=== PATIENT | female | born 1985 | race Caucasian/White ===

== ENCOUNTER 2016-01-25 17:27 | Inpatient (IN) | payer OTHER ==
[~2016-01-25] VITALS: Ht 157.5 cm; Wt 77.8 kg
[2016-01-25 18:21] LABS: MEAN CORPUSCULAR HEMOGLOBIN 31.1 pg (27.0-33.0); MEAN CORPUSCULAR HGB CONC 34.4 g/dl (32.0-36.5); MEAN CORPUSCULAR VOLUME 90.3 fl (80.0-96.0); RED CELL DISTRIBUTION WIDTH 11.7 % (11.5-14.5); WHITE BLOOD COUNT 11.8 K/mm3 (4.0-10.0)
[2016-01-25 18:32] LABS: AMPHETAMINES LEVEL URINE NEGATIVE (NEGATIVE); BENZODIAZEPINES URINE NEGATIVE (NEGATIVE); COCAINE METABOLITE URINE NEGATIVE (NEGATIVE); CONTROL LINE INT CTR LINE PRESENT; METHADONE URINE NEGATIVE (NEGATIVE); OPIATES URINE NEGATIVE (NEGATIVE); TRICYCLIC ANTIDEPRESS URINE NEGATIVE (NEGATIVE)
[2016-01-25 18:38] LABS: CONTROL LINE HCG INT CTR LINE PRESENT
[2016-01-25 18:54] LABS: ALBUMIN 4.3 GM/DL (3.2-5.2); ALBUMIN/GLOBULIN RATIO 1.39 (1.00-1.93); ALKALINE PHOSPHATASE 45 U/L (45-117); ALT/SGPT 17 U/L (12-78); ANION GAP 10 MEQ/L (8-16); AST/SGOT 15 U/L (15-37); BILIRUBIN,DIRECT 0.1 MG/DL (0.0-0.2); BILIRUBIN,TOTAL 0.2 MG/DL (0.2-1.0); BLOOD UREA NITROGEN 11 MG/DL (7-18); CALCIUM LEVEL 8.7 MG/DL (8.5-10.1); CARBON DIOXIDE LEVEL 26 MEQ/L (21-32); CHLORIDE LEVEL 106 MEQ/L (98-107); GLOMERULAR FILTRATION RATE > 60.0 (>60); GLUCOSE, FASTING 97 MG/DL (70-105); POTASSIUM SERUM 3.7 MEQ/L (3.5-5.1); SODIUM LEVEL 142 MEQ/L (136-145); TOTAL PROTEIN 7.4 GM/DL (6.4-8.2)
[2016-01-25] MEDS ORDERED: MAALOX 30 ML SUSP *UDC PO PRN (19:30)
[2016-01-25] MEDS ORDERED: MOM 30ML SUSPENSION UDC PO PRN (19:30)
[2016-01-25] MEDS ORDERED: BENA25CA2 PO (19:45)
--- NOTE | 2016-01-25 20:16 | EDDOCDS ---
Physician Documentation [facility] Name: Мария Mann Age: 30 yrs Sex: Female : 1985 Arrival Date: 01/25/2016 Time: 17:27 Bed [facility] Private MD: Nikia Robledo A Disposition: 01/25/16 19:20 Hospitalization ordered by Joshua Herrera for Inpatient Admission. Preliminary diagnosis is Major depressive disorder, single episode. - Bed requested for Admit. - Status is Inpatient Admission. mf4 - Condition is Stable. - Problem is new. - Symptoms are unchanged. Historical: - Allergies: Mucinex; - Home Meds: 1. none - PMHx: Seasonal Allergies; Anxiety; - PSHx: none; - Social history: Smoking status: Patient states was never smoker of tobacco. No barriers to communication noted, The patient speaks fluent Occitan, Speaks appropriately for age. - Family history: Not pertinent. - : The pt / caregiver states he / she is not on anticoagulants. Home medication list is obtained from the patient. - Exposure Risk Screening:: None identified. 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 2 in. (157.48 cm) (R); 20:09 BP 136 / 74; Pulse 72; Resp 16; Pulse Ox 100% on R/A; Pain 0/10; mf4 17:29 Body Mass Index 29.26 (72.57 kg, 157.48 cm) dd6 MDM: 17:58 Consult PFS/PSA/Oracle Bpm Consultant ordered. br1 17:58 Consult PFS/PSA/Oracle Bpm Consultant: Patient's case requires discussion with on-call br1 Psychiatrist ordered. 17:58 PSA/PFS to call Nursing Machine Room Operator, to enter patient data on [place] Safe Act if patient br1 involuntarily admitted or transferred for SI or HI ordered. 17:58 Confirm accurate psychiatric medication list and times of last dosage ordered. br1 17:58 Detain Pt Until Medically/PFS Cleared ordered. br1 17:59 Acetaminophen Level Ordered. EDMS 17:59 Basic Metabolic Profile Ordered. EDMS 17:59 Complete Blood Count Ordered. EDMS 17:59 Drug Eval Toxicology ED Only Ordered. EDMS 17:59 Ethyl Alcohol (ethanol) Ordered. EDMS 17:59 Liver Profile Ordered. EDMS 17:59 Salicylate Level Ordered. EDMS 17:59 Thyroid Stimulating Hormone Ordered. EDMS 17:59 HCG,Serum Qualitative Ordered. EDMS 18:12 REGULAR DIET PLASTIC SILVER+DIET ordered. EDMS 18:29 Complete Blood Count Reviewed. br1 18:30 Consult PFS/PSA/Oracle Bpm Consultant complete. ca 18:51 HIV Screen, Nursing ordered. po 18:59 Acetaminophen Level Reviewed. br1 18:59 Drug Eval Toxicology ED Only Reviewed. br1 18:59 Salicylate Level Reviewed. br1 18:59 Basic Metabolic Profile Reviewed. br1 18:59 Ethyl Alcohol (ethanol) Reviewed. br1 18:59 Liver Profile Reviewed. br1 18:59 Thyroid Stimulating Hormone Reviewed. br1 18:59 HCG,Serum Qualitative Reviewed. br1 19:00 Consult PFS/PSA/Socail Worker: Cleared medically for eval ordered. br1 19:07 Financial registration complete. zo 19:08 Consult PFS/PSA/Socail Worker: Cleared medically for eval complete. ca 19:09 Consult PFS/PSA/Oracle Bpm Consultant: Patient's case requires discussion with on-call ca Psychiatrist complete. 19:09 PSA/PFS to call Nursing Machine Room Operator, to enter patient data [place] Safe [place] if patient ca involuntarily admitted or transferred for SI or HI complete. 19:17 [facility] [place] was scanned into [employer] and attached to record. dm19 19:18 [facility] [place] was scanned into [employer] and attached to record. dm19 19:18 Undo -Financial registration. dm19 19:18 Financial registration complete. dm19 19:22 BED REQUEST+ADM ordered. EDMS 19:26 Admit to [facility]: ordered. EDMS 19:26 REGULAR DIET ordered. EDMS 19:28 [facility] Legal paperwork was scanned into [employer] and attached to record. ml4 Signatures: Dispatcher [employer] EDMS Reece Sheriff RN RN po Anderson, Cathy, PSA PSA ca Christiano Landon RN RN mlb1 Beverly Negrete, PSA PSA ml4 Yosvany Chi Brian, MD MD br1 Darshan Mullins,ASSISTANT MANAGER AIRSIDE OPERATIONS ASSISTANT MANAGER AIRSIDE OPERATIONS mf4 Lainey Benítez dm19 The chart was reviewed and I authenticate all verbal orders and agree with the evaluation and treatment provided.Attachments: 19:18 [facility] Payment Agreement dm19 MTDD
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
[2016-01-25 21:00] VITALS: BP 154/83
[2016-01-26 06:35] VITALS: BP 137/76
[2016-01-26] MEDS: ACETAMINOPHEN TAB 650MG DOSE (2X325MG) PO PRN (17:56)
[2016-01-26 18:00] VITALS: BP 119/73
[2016-01-27 06:21] VITALS: BP 127/77
--- NOTE | 2016-01-27 06:30 | REPUSA ---
CLINICAL HISTORY: Headache. TECHNIQUE: Multiple axial CT images were obtained through brain without IV contrast material. COMMENTS: The study shows normal configuration of sella turcica. There are no intra or extra-axial collections. There is no mass effect or midline shift. There is no evidence of hematoma formation. No hydrocephalus is present. The ventricles are symmetrical. No abnormal calcifications are present. No significant focal abnormalities are seen either in the posterior fossa or supratentorial compartme nt. IMPRESSION: No acute intracranial pathology. Thank you for your kind referral of this patient.
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
[2016-01-27 18:00] VITALS: BP 131/71
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
--- NOTE | 2016-01-27 21:16 | EDDOCDS ---
Physician Documentation [facility] Name: Мария Mann Age: 30 yrs Sex: Female : 1985 Arrival Date: 01/25/2016 Time: 17:27 Bed RUST3 Private MD: Nikia Robledo A Disposition: 01/25/16 19:20 Hospitalization ordered by Joshua Herrera for Inpatient Admission. Preliminary diagnosis is Major depressive disorder, single episode. - Bed requested for Admit. - Status is Inpatient Admission. mf4 - Condition is Stable. - Problem is new. - Symptoms are unchanged. Historical: - Allergies: Mucinex; - Home Meds: 1. none - PMHx: Seasonal Allergies; Anxiety; - PSHx: none; - Social history: Smoking status: Patient states was never smoker of tobacco. No barriers to communication noted, The patient speaks fluent Mohawk, Speaks appropriately for age. - Family history: Not pertinent. - : The pt / caregiver states he / she is not on anticoagulants. Home medication list is obtained from the patient. - Exposure Risk Screening:: None identified. SALES AND SERVICE SPECIALIST: 01/24 17:36 LMP 01/13/2016 mlb1 Vital Signs: 17:29 BP 145 / 94; Pulse 86; Resp 18 S; Temp 98.8(O); Pulse Ox 97% on R/A; Weight 72.57 kg / dd6 159.99 lbs (R); Height 5 ft. 2 in. (157.48 cm) (R); 20:09 BP 136 / 74; Pulse 72; Resp 16; Pulse Ox 100% on R/A; Pain 0/10; mf4 17:29 Body Mass Index 29.26 (72.57 kg, 157.48 cm) dd6 MDM: 17:58 Consult PFS/PSA/Hand I Thermal Cutter ordered. br1 17:58 Consult PFS/PSA/Hand I Thermal Cutter: Patient's case requires discussion with on-call br1 Psychiatrist ordered. 17:58 PSA/PFS to call Nursing Audio Visual Technician, to enter patient data on [place] if patient br1 involuntarily admitted or transferred for SI or HI ordered. 17:58 Confirm accurate psychiatric medication list and times of last dosage ordered. br1 17:58 Detain Pt Until Medically/PFS Cleared ordered. br1 17:59 Acetaminophen Level Ordered. EDMS 17:59 Basic Metabolic Profile Ordered. EDMS 17:59 Complete Blood Count Ordered. EDMS 17:59 Drug Eval Toxicology ED Only Ordered. EDMS 17:59 Ethyl Alcohol (ethanol) Ordered. EDMS 17:59 Liver Profile Ordered. EDMS 17:59 Salicylate Level Ordered. EDMS 17:59 Thyroid Stimulating Hormone Ordered. EDMS 17:59 HCG,Serum Qualitative Ordered. EDMS 18:12 REGULAR DIET PLASTIC SILVER+DIET ordered. EDMS 18:29 Complete Blood Count Reviewed. br1 18:30 Consult PFS/PSA/Hand I Thermal Cutter complete. ca 18:51 HIV Screen, Nursing ordered. po 18:59 Acetaminophen Level Reviewed. br1 18:59 Drug Eval Toxicology ED Only Reviewed. br1 18:59 Salicylate Level Reviewed. br1 18:59 Basic Metabolic Profile Reviewed. br1 18:59 Ethyl Alcohol (ethanol) Reviewed. br1 18:59 Liver Profile Reviewed. br1 18:59 Thyroid Stimulating Hormone Reviewed. br1 18:59 HCG,Serum Qualitative Reviewed. br1 19:00 Consult PFS/PSA/Socail Worker: Cleared medically for eval ordered. br1 19:07 Financial registration complete. zo 19:08 Consult PFS/PSA/Socail Worker: Cleared medically for eval complete. ca 19:09 Consult PFS/PSA/Hand I Thermal Cutter: Patient's case requires discussion with on-call ca Psychiatrist complete. 19:09 PSA/PFS to call Nursing Audio Visual Technician, to enter patient data [place] if patient ca involuntarily admitted or transferred for SI or HI complete. 19:17 [facility] [place] Payment Agreement was scanned into [facility] and attached to record. dm19 19:18 [facility] Payment Agreement was scanned into [facility] and attached to record. dm19 19:18 Undo -Financial registration. dm19 19:18 Financial registration complete. dm19 19:22 BED REQUEST+ADM ordered. EDMS 19:26 Admit to IMHU: ordered. EDMS 19:26 REGULAR DIET ordered. EDMS 19:28 [facility] Legal paperwork was scanned into [facility] and attached to record. ml4 01/25 06:00 T-Sheet-- Draft Copy was scanned into [facility] and attached to record. hs2 01/26 09:42 PCR was scanned into [facility] and attached to record. gb Signatures: Dispatcher [employer] Reece Cummins,RN Mary Kate Aggarwal, PSA PSA ca Karen Gallagher, Reg Reg gb Christiano Landon RN RN mlb1 Beverly Negrete, PSA PSA ml4 Yosvany Chi Brian, MD MD br1 Darshan Mullins,TIME ANALYSIS CLERK TIME ANALYSIS CLERK mf4 Brandi Shah, Reg Reg hs2 Lainey Benítez dm19 The chart was reviewed and I authenticate all verbal orders and agree with the evaluation and treatment provided.Attachments: 19:18 [facility] Payment Agreement dm19 01/25 06:00 T-Sheet-- Draft Copy hs2 Chart Complete MTDD
--- NOTE | 2016-01-27 21:16 | EDDOCDS ---
Physician Documentation [facility] Name: Мария Mann Age: 30 yrs Sex: Female : 1985 Arrival Date: 01/25/2016 Time: 17:27 Bed [facility] Private MD: Nikia Robledo A Disposition: 01/25/16 19:20 Hospitalization ordered by Joshua Herrera for Inpatient Admission. Preliminary diagnosis is Major depressive disorder, single episode. - Bed requested for Admit. - Status is Inpatient Admission. mf4 - Condition is Stable. - Problem is new. - Symptoms are unchanged. Historical: - Allergies: Mucinex; - Home Meds: 1. none - PMHx: Seasonal Allergies; Anxiety; - PSHx: none; - Social history: Smoking status: Patient states was never smoker of tobacco. No barriers to communication noted, The patient speaks fluent Pashto, Speaks appropriately for age. - Family history: Not pertinent. - : The pt / caregiver states he / she is not on anticoagulants. Home medication list is obtained from the patient. - Exposure Risk Screening:: None identified. PRINTER FLOOR COVERING ASSISTANT: 01/24 17:36 LMP 01/13/2016 mlb1 Vital Signs: 17:29 BP 145 / 94; Pulse 86; Resp 18 S; Temp 98.8(O); Pulse Ox 97% on R/A; Weight 72.57 kg / dd6 159.99 lbs (R); Height 5 ft. 2 in. (157.48 cm) (R); 20:09 BP 136 / 74; Pulse 72; Resp 16; Pulse Ox 100% on R/A; Pain 0/10; mf4 17:29 Body Mass Index 29.26 (72.57 kg, 157.48 cm) dd6 MDM: 17:58 Consult PFS/PSA/Shipping Clerk Packing ordered. br1 17:58 Consult PFS/PSA/Shipping Clerk Packing: Patient's case requires discussion with on-call br1 Psychiatrist ordered. 17:58 PSA/PFS to call Nursing Screener Operator, to enter [place] data [place] if patient br1 involuntarily admitted or transferred for SI or HI ordered. 17:58 Confirm accurate psychiatric medication list and times of last dosage ordered. br1 17:58 Detain Pt Until Medically/PFS Cleared ordered. br1 17:59 Acetaminophen Level Ordered. EDMS 17:59 Basic Metabolic Profile Ordered. EDMS 17:59 Complete Blood Count Ordered. EDMS 17:59 Drug Eval Toxicology ED Only Ordered. EDMS 17:59 Ethyl Alcohol (ethanol) Ordered. EDMS 17:59 Liver Profile Ordered. EDMS 17:59 Salicylate Level Ordered. EDMS 17:59 Thyroid Stimulating Hormone Ordered. EDMS 17:59 HCG,Serum Qualitative Ordered. EDMS 18:12 REGULAR DIET PLASTIC SILVER+DIET ordered. EDMS 18:29 Complete Blood Count Reviewed. br1 18:30 Consult PFS/PSA/Shipping Clerk Packing complete. ca 18:51 HIV Screen, Nursing ordered. po 18:59 Acetaminophen Level Reviewed. br1 18:59 Drug Eval Toxicology ED Only Reviewed. br1 18:59 Salicylate Level Reviewed. br1 18:59 Basic Metabolic Profile Reviewed. br1 18:59 Ethyl Alcohol (ethanol) Reviewed. br1 18:59 Liver Profile Reviewed. br1 18:59 Thyroid Stimulating Hormone Reviewed. br1 18:59 HCG,Serum Qualitative Reviewed. br1 19:00 Consult PFS/PSA/Socail Worker: Cleared medically for eval ordered. br1 19:07 Financial registration complete. zo 19:08 Consult PFS/PSA/Socail Worker: Cleared medically for eval complete. ca 19:09 Consult PFS/PSA/Shipping Clerk Packing: Patient's case requires discussion with on-call ca Psychiatrist complete. 19:09 PSA/PFS to call Nursing Screener Operator, to enter patient data [place] if patient ca involuntarily admitted or transferred for SI or HI complete. 19:17 [facility] [place] [place] Payment Agreement was scanned into [employer] and attached to record. dm19 19:18 [facility] [place] [place] Payment Agreement was scanned into [employer] and attached to record. dm19 19:18 Undo -Financial registration. dm19 19:18 Financial registration complete. dm19 19:22 BED REQUEST+ADM ordered. EDMS 19:26 Admit to IMHU: ordered. EDMS 19:26 REGULAR DIET ordered. EDMS 19:28 [facility] Legal paperwork was scanned into [employer] and attached to record. ml4 01/25 06:00 T-Sheet-- Draft Copy was scanned into [employer] and attached to record. hs2 01/26 09:42 PCR was scanned into [employer] and attached to record. gb Signatures: Dispatcher [employer] Reece Cummins,RN Mary Kate Aggarwal, PSA PSA ca Karen Gallagher, Reg Reg gb Christiano Landon RN RN mlb1 Beverly Negrete, PSA PSA ml4 Yosvany Chi Brian, MD MD br1 Darshan Mullins,HANDLE SEWER HANDLE SEWER mf4 Brandi Shah, Reg Reg hs2 Lainey Benítez dm19 The chart was reviewed and I authenticate all verbal orders and agree with the evaluation and treatment provided.Attachments: 19:18 [facility] Payment Agreement dm19 01/25 06:00 T-Sheet-- Draft Copy hs2 Chart Complete MTDD
[2016-01-27] MEDS: QUEtiapine FUMARATE 100 MG TAB PO SCH (21:25)
[2016-01-27] MEDS: ACETAMINOPHEN TAB 650MG DOSE (2X325MG) PO PRN (21:27)
[2016-01-28 06:22] VITALS: BP 133/75
--- NOTE | 2016-01-28 06:58 | IPN ---
DATE: 01/27/2016 VITAL SIGNS: Temperature 96.8 oral, pulse 72, respiratory rate 16, blood pressure 127/77. MENTAL STATUS EXAMINATION: The patient reports that she had trouble sleeping last night and headaches and the PA has ordered a CAT scan today. The patient's keeps her bland affect and is reporting that her voices are somewhat muted. Staff is reporting that they can see her talking to herself in the day area as if she is responding to internal stimuli. The patient denies suicidality. She is oriented times three. Judgment and insight considered to be impaired. She once again is totally externalizing everything and having trouble accepting that any of this resides within her. DIAGNOSIS: Major depression, recurrent. Rule out psychosis secondary to cannabis use. TREATMENT PLAN: Now today for the first time, the patient is willing to let me give her a medicine to help her with sleep and take away her voices. Accordingly we will be started Seroquel 100 mg daily at bedtime as we are giving test dose. Staff notices that she is not eating well and the hope is the Seroquel will stimulate her appetite as well.
[2016-01-28 18:08] VITALS: BP 135/88
[2016-01-28] MEDS: QUEtiapine FUMARATE 100 MG TAB PO SCH (21:00)
[2016-01-28] MEDS: traZODone 50 MG TAB PO PRN (22:03)
[2016-01-29 06:16] VITALS: BP 138/93
[2016-01-29] MEDS: ACETAMINOPHEN TAB 650MG DOSE (2X325MG) PO PRN (08:57)
[2016-01-29] MEDS ORDERED: LORATADINE 10 MG TAB PO SCH (09:00)
[2016-01-29] MEDS: LORATADINE 10 MG TAB PO SCH (11:46)
--- NOTE | 2016-01-29 12:58 | IPN ---
DATE: 01/29/2016 VITAL SIGNS: Temperature 96.8 tympanic, pulse 78, respiratory rate 20, blood pressure 138/93. MENTAL STATUS EXAMINATION: The patient today remains anxious and responding to internal stimuli. She remarked that she is sleeping poorly and did not want to take Seroquel any more because she developed restless legs at night. She has been noticed to be talking to herself in the day room. She admits to me that she still hears voices, but says they are diminished somewhat. The patient is fully oriented. Judgment and insight are still considered to be impaired. DIAGNOSIS: Remains paranoid psychosis. PLAN: Substitute now Zyprexa 5 mg for Seroquel in the hopes that this will create less extrapyramidal symptoms. The patient still needs inpatient hospital stay as she remains acutely psychotic and we have not found a medication that she can be compliant to just yet.
[2016-01-29 18:00] VITALS: BP 126/72
[2016-01-29] MEDS ORDERED: OLANZapine 5 MG TAB PO SCH (21:00)
[2016-01-29] MEDS: traZODone 50 MG TAB PO PRN (23:13)
[2016-01-30 06:34] VITALS: BP 119/76
[2016-01-30] MEDS: LORATADINE 10 MG TAB PO SCH (08:48)
[2016-01-30 18:00] VITALS: BP 129/84
[2016-01-30] MEDS: traZODone 50 MG TAB PO PRN (20:24)
[2016-01-30] MEDS: OLANZapine 10 MG TAB PO SCH (20:24)
[2016-01-31 06:24] VITALS: BP 148/87
[2016-01-31] MEDS: LORATADINE 10 MG TAB PO SCH (08:23)
--- NOTE | 2016-01-31 09:43 | IPN ---
DATE: 01/30/2016 VITAL SIGNS: Temperature 97.2 tympanic, pulse is 78, respiratory rate is 16, blood pressure is 119/76. MENTAL STATUS EXAMINATION: The patient reports that she tolerated Zyprexa 5 mg much better than Seroquel. She notes that this is the first time she has had a refreshing sleep in a long time and that the voices are somewhat receded. She remains bland, vague and confused, but is generally oriented times three. Judgment and insight remain impaired. DIAGNOSTIC IMPRESSION: Remains paranoid psychosis. PLAN: Zyprexa 5 mg nightly is apparently well tolerated, but there is room for higher dose as the patient did not have a complete night sleep. So this evening we will raise it to 10 mg, and happily she is not having any restless legs and we will see if we can increase her improvement and still not have side effects.
[2016-01-31] MEDS: FLUTICASONE PROP 0.05% NASAL SPRAY 16 GM (FLONASE) SCH (15:26)
[2016-01-31 18:00] VITALS: BP 131/75
[2016-01-31] MEDS: traZODone 50 MG TAB PO PRN (20:13)
[2016-01-31] MEDS: OLANZapine 10 MG TAB PO SCH (20:13)
[2016-02-01 06:34] VITALS: BP 127/70
[2016-02-01] MEDS: FLUTICASONE PROP 0.05% NASAL SPRAY 16 GM (FLONASE) SCH (08:25)
[2016-02-01] MEDS: LORATADINE 10 MG TAB PO SCH (08:25)
[2016-02-01 18:00] VITALS: BP 137/91
[2016-02-01] MEDS: traZODone 50 MG TAB PO PRN (20:43)
[2016-02-01] MEDS: OLANZapine 10 MG TAB PO SCH (20:43)
[2016-02-02 06:27] VITALS: BP 139/87
--- NOTE | 2016-02-02 07:05 | IPN ---
DATE: 01/30/2014 VITAL SIGNS: Temperature 97.8 tympanic, pulse is 83 and respiratory rate is 16. Blood pressure is 148/87. MENTAL STATUS EXAMINATION: The patient reports that the increase of Zyprexa coming from 5 to 10 mg has been beneficial for her. She reports improved sleep, which is restorative, without her legs being jumpy. The patient notes that her voices are receding. Мария is oriented times three and denies suicidal ideation. Judgment and insight are considered to be slowly improving on a daily basis. Diagnosis remains major depression, recurrent, with psychotic features. TREATMENT PLAN: Continue to monitor the patient's response to this new increase in medication to make sure that it continues to provide benefit without side effects, thus promoting patient compliance after discharge. Our hope is that Мария will feel that this medicine helps her, that she tolerates it well and therefore then she would want to take it after she leaves the hospital.
[2016-02-02] MEDS: FLUTICASONE PROP 0.05% NASAL SPRAY 16 GM (FLONASE) SCH (08:08)
[2016-02-02] MEDS: LORATADINE 10 MG TAB PO SCH (08:08)
[2016-02-02 18:00] VITALS: BP 124/75
[2016-02-02] MEDS: traZODone 50 MG TAB PO PRN (19:48)
[2016-02-02] MEDS: OLANZapine 10 MG TAB PO SCH (19:48)
[2016-02-03 06:00] VITALS: BP 127/80
[2016-02-03] MEDS: FLUTICASONE PROP 0.05% NASAL SPRAY 16 GM (FLONASE) SCH (09:00)
[2016-02-03] MEDS: LORATADINE 10 MG TAB PO SCH (09:47)
[2016-02-03 18:00] VITALS: BP 130/74
[2016-02-03] MEDS: traZODone 50 MG TAB PO PRN (20:29)
[2016-02-03] MEDS: OLANZapine 10 MG TAB PO SCH (20:29)
[2016-02-04 06:57] VITALS: BP 134/81
[2016-02-04] MEDS: FLUTICASONE PROP 0.05% NASAL SPRAY 16 GM (FLONASE) SCH (09:04)
[2016-02-04] MEDS: LORATADINE 10 MG TAB PO SCH (09:04)
[2016-02-04] MEDS: CitaloPRAM (CeleXA) 10 MG TABLET PO SCH (15:34)
[2016-02-04 18:00] VITALS: BP 121/73
[2016-02-04] MEDS: OLANZapine 10 MG TAB PO SCH (21:03)
[2016-02-04] MEDS: traZODone 50 MG TAB PO PRN (21:03)
[2016-02-05 06:24] VITALS: BP 132/85
[2016-02-05] MEDS: LORATADINE 10 MG TAB PO SCH (08:03)
[2016-02-05] MEDS: CitaloPRAM (CeleXA) 10 MG TABLET PO SCH (08:03)
[2016-02-05] MEDS: FLUTICASONE PROP 0.05% NASAL SPRAY 16 GM (FLONASE) SCH (08:03)
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
[2016-02-05 18:00] VITALS: BP 132/78
[2016-02-05] MEDS: traZODone 50 MG TAB PO PRN (20:08)
[2016-02-05] MEDS: OLANZapine 10 MG TAB PO SCH (20:08)
[2016-02-05] MEDS: ACETAMINOPHEN TAB 650MG DOSE (2X325MG) PO PRN (21:08)
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
[2016-02-06 06:12] VITALS: BP 141/96
[2016-02-06] MEDS: LORATADINE 10 MG TAB PO SCH (08:06)
[2016-02-06] MEDS: FLUTICASONE PROP 0.05% NASAL SPRAY 16 GM (FLONASE) SCH (08:06)
[2016-02-06] MEDS: CitaloPRAM (CeleXA) 10 MG TABLET PO SCH (08:06)
[2016-02-06 18:00] VITALS: BP 138/79
[2016-02-06] MEDS: traZODone 50 MG TAB PO PRN (20:32)
[2016-02-06] MEDS: OLANZapine 10 MG TAB PO SCH (20:32)
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
[2016-02-07 06:29] VITALS: BP 143/91
[2016-02-07] MEDS: FLUTICASONE PROP 0.05% NASAL SPRAY 16 GM (FLONASE) SCH (09:01)
[2016-02-07] MEDS: CitaloPRAM (CeleXA) 10 MG TABLET PO SCH (09:01)
[2016-02-07] MEDS: LORATADINE 10 MG TAB PO SCH (09:01)
[2016-02-07 18:00] VITALS: BP 130/88
[2016-02-07] MEDS: OLANZapine 10 MG TAB PO SCH (20:18)
[2016-02-07] MEDS: traZODone 50 MG TAB PO PRN (20:18)
--- NOTE | 2016-02-08 02:16 | IPN ---
DATE: 02/07/2016 SUBJECTIVE: Мария is seen today on her 14th day of inpatient psychiatric admission. She reports that she is again feeling increasingly more depressed. Therefore, she requests for antidepressant medication, Celexa, to be increased. She also reports having slept poorly the previous night. When she reported these symptoms and requested for medication dose adjustment, she at the same time did request to be discharged home, stating that she does not feel safe in the current setting due to concerns that other patients would do harm to her. Of note, there is no clear evidence that the other peers are currently out to hurt her in any way. CURRENT MEDICATIONS: - Zyprexa 10 mg by mouth at bedtime - Celexa 10 mg by mouth daily No reported medication related side effects. OBSERVATION: VITAL SIGNS: Blood pressure 140/91, pulse 82, respirations 16, temperature 97.4. She is noted to be calm, cooperative, not to have evidence of psychomotor retardation, and no evidence of tardive dyskinesia or extrapyramidal symptoms (EPS). Her speech is of slightly low volume although with normal articulation. Mood is depressed. Affect slightly restricted. Thought content is notable for paranoid themes about other patients out to hurt her. She denies suicidal or homicidal ideation. Insight is limited. Judgment slightly impaired. ASSESSMENT: She currently appears to be decompensating with similarly worsening mood. PLAN: She will continue the current dose of Zyprexa 10 mg orally daily at bedtime; however, dose of Celexa will be adjusted from 10 mg to 20 mg daily to better target depressive symptoms. She will continue to receive group, individual, and activity therapies. Ongoing assessment and supportive therapy. [facility]
[2016-02-08 06:30] VITALS: BP 142/84
[2016-02-08] MEDS: CitaloPRAM (CeleXA) 20 MG TAB PO SCH (09:02)
[2016-02-08] MEDS: LORATADINE 10 MG TAB PO SCH (09:02)
[2016-02-08] MEDS: FLUTICASONE PROP 0.05% NASAL SPRAY 16 GM (FLONASE) SCH (09:02)
[2016-02-08 18:00] VITALS: BP 132/88
[2016-02-08] MEDS: OLANZapine 10 MG TAB PO SCH (20:22)
[2016-02-08] MEDS: traZODone 50 MG TAB PO PRN (20:22)
[2016-02-09 06:09] VITALS: BP 133/84
--- NOTE | 2016-02-09 07:24 | IPN ---
DATE: 02/08/2016 SUBJECTIVE: Мария is seen and her treatment reviewed. She is in her 15th day of inpatient admission and presents today with no new complaints. She states that she has been taking her medications. Dose of Celexa was increased from 10 mg to 20 mg orally daily the day prior to better manage depressive symptoms. She reports that she still has some trouble sleeping, and is "a little depressed". No reported medication related side effects. A family meeting is held, with her mother present. Mother expresses satisfaction with the patient's progress, noting that she appears more cheerful and relatively less depressed. Possible discharge is discussed, with tentative discharge date scheduled for 02/10/16, and both express understanding and are in agreement with plan. Mom indicates that she will be available on said date to hop picker the patient. OBSERVATION: She is alert, calm and cooperative. She is fairly groomed. Speech is fluent. Thought process is coherent. No psychotic features evident. Her mood is noted to be still depressed, although less dysphoric than was noted the day prior. No medication related adverse events evident, and she denies suicidal or homicidal thoughts, plan or intent. Vital signs are stable. CURRENT MEDICATION: - Zyprexa 10 mg by mouth at bedtime - Celexa 20 mg by mouth daily ASSESSMENT: The patient is currently tolerating medication and not noted to be at risk for suicide or homicide. PLAN: Current treatment will be continued and ongoing assessment and supportive therapy. MTDD
[2016-02-09] MEDS: LORATADINE 10 MG TAB PO SCH (09:15)
[2016-02-09] MEDS: CitaloPRAM (CeleXA) 20 MG TAB PO SCH (09:15)
[2016-02-09] MEDS: FLUTICASONE PROP 0.05% NASAL SPRAY 16 GM (FLONASE) SCH (09:15)
[2016-02-09] MEDS: ACETAMINOPHEN TAB 650MG DOSE (2X325MG) PO PRN (17:21)
[2016-02-09 18:00] VITALS: BP 121/73
[2016-02-09] MEDS: traZODone 50 MG TAB PO PRN (21:51)
[2016-02-09] MEDS: OLANZapine 10 MG TAB PO SCH (21:51)
[2016-02-10 06:00] VITALS: BP_SYST 138; BP_SYST 157; BP_DIAS 102; BP_DIAS 76
[2016-02-10] MEDS: FLUTICASONE PROP 0.05% NASAL SPRAY 16 GM (FLONASE) SCH (09:21)
[2016-02-10] MEDS: LORATADINE 10 MG TAB PO SCH (09:21)
[2016-02-10] MEDS: CitaloPRAM (CeleXA) 20 MG TAB PO SCH (09:21)
[2016-02-10] MEDS ORDERED: OLAN10TA2 PO (12:29)
[2016-02-10] MEDS ORDERED: CLAR1TAB2 PO (12:29)
[2016-02-10] MEDS ORDERED: CELE20TA PO (12:29)
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
== END 2016-02-10 14:15 | disposition home or self-care (01) | DRG 751 ==
LOC: M ED 17:27 → M PSY 20:20
PROVIDERS: ADMIT Psychiatry & Neurology Psychiatry; ATTEND Psychiatry & Neurology Psychiatry
DX: F32.3 Major depressive disorder, single episode, severe with psychotic features (principal); Z79.899 Other long term (current) drug therapy; Z88.8 Allergy status to other drugs, medicaments and biological substances

== ENCOUNTER 2016-06-30 17:28 | Emergency (ER) | payer OTHER, SELFPAY ==
[~2016-06-30] VITALS: Ht 162.6 cm; Wt 72.6 kg
[~2016-06-30 17:28] MED LIST: BENA25CA2 PO; CELE20TA PO; CLAR1TAB2 PO; OLAN10TA2 PO
[2016-06-30 20:22] VITALS: BP 129/78
[2016-07-01] MEDS ORDERED: CLAR10CA3 PO (21:46)
[2016-07-03] MEDS ORDERED: HYDR1CRE2 EXT (10:37)
[2016-07-29] MEDS ORDERED: BENZ-52 PO (10:41)
== END 2016-06-30 20:24 | disposition home or self-care (01) ==
LOC: M ED 17:55
DX: F32.9 Major depressive disorder, single episode, unspecified (principal); J30.2 Other seasonal allergic rhinitis; Z79.899 Other long term (current) drug therapy; Z88.8 Allergy status to other drugs, medicaments and biological substances

== ENCOUNTER 2016-07-01 14:56 | Inpatient (IN) | payer OTHER, SELFPAY ==
[~2016-07-01] VITALS: Ht 162.6 cm; Wt 82.8 kg
[2016-07-01 18:13] LABS: MEAN CORPUSCULAR HEMOGLOBIN 31.8 pg (27.0-33.0); MEAN CORPUSCULAR HGB CONC 34.3 g/dl (32.0-36.5); MEAN CORPUSCULAR VOLUME 92.6 fl (80.0-96.0); RED CELL DISTRIBUTION WIDTH 12.1 % (11.5-14.5); WHITE BLOOD COUNT 11.4 K/mm3 (4.0-10.0)
[2016-07-01 18:33] LABS: CONTROL LINE HCG INT CTR LINE PRESENT
[2016-07-01 18:41] LABS: METHADONE URINE NEGATIVE (NEGATIVE)
[2016-07-01 18:50] LABS: ALBUMIN 4.1 GM/DL (3.2-5.2); ALBUMIN/GLOBULIN RATIO 1.32 (1.00-1.93); ALKALINE PHOSPHATASE 44 U/L (45-117); ALT/SGPT 15 U/L (12-78); ANION GAP 8 MEQ/L (8-16); AST/SGOT 8 U/L (15-37); BILIRUBIN,DIRECT < 0.1 MG/DL (0.0-0.2); BILIRUBIN,TOTAL 0.3 MG/DL (0.2-1.0); BLOOD UREA NITROGEN 11 MG/DL (7-18); CALCIUM LEVEL 8.5 MG/DL (8.5-10.1); CARBON DIOXIDE LEVEL 26 MEQ/L (21-32); CHLORIDE LEVEL 108 MEQ/L (98-107); CREATININE FOR GFR 0.79 MG/DL (0.55-1.02); GLOMERULAR FILTRATION RATE > 60.0 (>60); GLUCOSE, FASTING 77 MG/DL (70-105); POTASSIUM SERUM 4.2 MEQ/L (3.5-5.1); SODIUM LEVEL 142 MEQ/L (136-145); TOTAL PROTEIN 7.2 GM/DL (6.4-8.2)
[2016-07-01] MEDS ORDERED: CLAR10CA3 PO (21:46)
[2016-07-01 22:37] VITALS: BP 134/89
[2016-07-01] MEDS ORDERED: ACETAMINOPHEN TAB 650MG DOSE (2X325MG) PO PRN (23:00)
[2016-07-01] MEDS ORDERED: MOM 30ML SUSPENSION UDC PO PRN (23:00)
[2016-07-01] MEDS ORDERED: MAALOX 30 ML SUSP *UDC PO PRN (23:00)
[2016-07-02 06:37] VITALS: BP 148/76
[2016-07-02 18:00] VITALS: BP 113/69
[2016-07-02] MEDS: traZODone 50 MG TAB PO PRN (21:26)
[2016-07-02] MEDS ORDERED: hydrOXYzine 50 MG TAB PO PRN (21:30)
[2016-07-03 07:03] VITALS: BP 138/71
[2016-07-03] MEDS ORDERED: TYLE325C PO (10:31)
[2016-07-03] MEDS ORDERED: CITA20TA4 PO (10:32)
[2016-07-03] MEDS ORDERED: DIPH12.527 PO (10:33)
[2016-07-03] MEDS ORDERED: FLUTISP (10:35)
[2016-07-03] MEDS ORDERED: HYDR1CR EXT (10:37)
[2016-07-03] MEDS ORDERED: TRIA25CR TOP (10:38)
[2016-07-03 18:00] VITALS: BP 120/68
[2016-07-03] MEDS: traZODone 50 MG TAB PO PRN (23:11)
[2016-07-04 06:26] VITALS: BP 135/72
[2016-07-04] MEDS: LORATADINE 10 MG TAB PO SCH (17:19)
[2016-07-04] MEDS: FLUTICASONE PROP 0.05% NASAL SPRAY 16 GM (FLONASE) SCH (17:20)
[2016-07-04 18:00] VITALS: BP 119/71
[2016-07-04] MEDS ORDERED: traZODone 100 MG TAB PO SCH (21:00)
[2016-07-05 06:00] VITALS: BP 118/74
[2016-07-05] MEDS: FLUTICASONE PROP 0.05% NASAL SPRAY 16 GM (FLONASE) SCH (09:15)
[2016-07-05] MEDS: LORATADINE 10 MG TAB PO SCH (09:15)
[2016-07-05 18:00] VITALS: BP 140/80
[2016-07-05] MEDS: QUEtiapine FUMARATE 100 MG TAB PO SCH (21:00)
[2016-07-06 06:00] VITALS: BP 125/74
[2016-07-06] MEDS: FLUTICASONE PROP 0.05% NASAL SPRAY 16 GM (FLONASE) SCH (08:15)
[2016-07-06] MEDS: LORATADINE 10 MG TAB PO SCH (08:16)
[2016-07-06 18:00] VITALS: BP 137/68
[2016-07-06] MEDS: QUEtiapine FUMARATE 100 MG TAB PO SCH (21:00)
[2016-07-07 06:14] VITALS: BP 139/89
[2016-07-07] MEDS: LORATADINE 10 MG TAB PO SCH (09:18)
[2016-07-07] MEDS: FLUTICASONE PROP 0.05% NASAL SPRAY 16 GM (FLONASE) SCH (09:18)
[2016-07-07 18:13] VITALS: BP 131/80
[2016-07-08] MEDS: LORATADINE 10 MG TAB PO SCH (09:28)
[2016-07-08] MEDS: FLUTICASONE PROP 0.05% NASAL SPRAY 16 GM (FLONASE) SCH (09:28)
[2016-07-08 18:33] VITALS: BP 132/82
[2016-07-09 07:01] VITALS: BP 139/99
[2016-07-09] MEDS: FLUTICASONE PROP 0.05% NASAL SPRAY 16 GM (FLONASE) SCH (09:00)
[2016-07-09] MEDS: LORATADINE 10 MG TAB PO SCH (09:02)
[2016-07-09] MEDS ORDERED: CitaloPRAM (CeleXA) 10 MG TABLET PO ONE (12:45)
[2016-07-09 18:00] VITALS: BP 136/80
[2016-07-09] MEDS ORDERED: OLANZapine 5 MG TAB PO SCH (21:00)
[2016-07-10 06:00] VITALS: BP 139/73
[2016-07-10] MEDS: FLUTICASONE PROP 0.05% NASAL SPRAY 16 GM (FLONASE) SCH (08:50)
[2016-07-10] MEDS: LORATADINE 10 MG TAB PO SCH (08:54)
[2016-07-10] MEDS: CitaloPRAM (CeleXA) 10 MG TABLET PO SCH (08:54)
[2016-07-10] MEDS ORDERED: BENZTROPINE 1 MG TAB PO PRN (17:45)
[2016-07-10 18:00] VITALS: BP 126/85
[2016-07-10] MEDS: OLANZapine 10 MG TAB PO SCH (21:24)
[2016-07-11 06:09] VITALS: BP 123/73
[2016-07-11] MEDS: FLUTICASONE PROP 0.05% NASAL SPRAY 16 GM (FLONASE) SCH (09:00)
[2016-07-11] MEDS: LORATADINE 10 MG TAB PO SCH (09:49)
[2016-07-11] MEDS: CitaloPRAM (CeleXA) 10 MG TABLET PO SCH (09:49)
[2016-07-11 18:10] VITALS: BP 133/88
[2016-07-11] MEDS: OLANZapine 10 MG TAB PO SCH (20:55)
[2016-07-12 06:00] VITALS: BP 138/66
[2016-07-12] MEDS: CitaloPRAM (CeleXA) 10 MG TABLET PO SCH (08:58)
[2016-07-12] MEDS: FLUTICASONE PROP 0.05% NASAL SPRAY 16 GM (FLONASE) SCH (08:58)
[2016-07-12] MEDS: LORATADINE 10 MG TAB PO SCH (08:58)
[2016-07-12 18:00] VITALS: BP 138/89
[2016-07-12] MEDS: OLANZapine 10 MG TAB PO SCH (20:49)
[2016-07-13 06:41] VITALS: BP 140/92
[2016-07-13] MEDS: CitaloPRAM (CeleXA) 10 MG TABLET PO SCH (09:20)
[2016-07-13] MEDS: LORATADINE 10 MG TAB PO SCH (09:20)
[2016-07-13] MEDS: FLUTICASONE PROP 0.05% NASAL SPRAY 16 GM (FLONASE) SCH (09:20)
[2016-07-13 18:00] VITALS: BP 144/85
[2016-07-13] MEDS ORDERED: OLANZapine ORAL DISINTEGRATING TAB 5MG PO SCH (21:00)
[2016-07-14 06:51] VITALS: BP 135/76
[2016-07-14] MEDS: FLUTICASONE PROP 0.05% NASAL SPRAY 16 GM (FLONASE) SCH (08:08)
[2016-07-14] MEDS: LORATADINE 10 MG TAB PO SCH (08:09)
[2016-07-14] MEDS: CitaloPRAM (CeleXA) 10 MG TABLET PO SCH (08:09)
[2016-07-14 18:00] VITALS: BP 155/88
[2016-07-14] MEDS ORDERED: OLANZapine ORAL DISINTEGRATING TAB 5MG PO SCH (21:00)
[2016-07-15 06:02] VITALS: BP 127/87
[2016-07-15] MEDS: CitaloPRAM (CeleXA) 10 MG TABLET PO SCH (08:42)
[2016-07-15] MEDS: FLUTICASONE PROP 0.05% NASAL SPRAY 16 GM (FLONASE) SCH (08:42)
[2016-07-15] MEDS: LORATADINE 10 MG TAB PO SCH (08:42)
[2016-07-15 18:00] VITALS: BP 128/71
[2016-07-15] MEDS: OLANZapine 10 MG TAB PO SCH (21:54)
[2016-07-16 06:34] VITALS: BP 145/83
[2016-07-16] MEDS: CitaloPRAM (CeleXA) 10 MG TABLET PO SCH (08:20)
[2016-07-16] MEDS: FLUTICASONE PROP 0.05% NASAL SPRAY 16 GM (FLONASE) SCH (08:21)
[2016-07-16] MEDS: LORATADINE 10 MG TAB PO SCH (08:21)
[2016-07-16 18:26] VITALS: BP 129/73
[2016-07-16] MEDS: OLANZapine 10 MG TAB PO SCH (20:26)
[2016-07-17 07:12] VITALS: BP 138/83
[2016-07-17] MEDS: LORATADINE 10 MG TAB PO SCH (08:20)
[2016-07-17] MEDS: CitaloPRAM (CeleXA) 10 MG TABLET PO SCH (08:21)
[2016-07-17] MEDS: FLUTICASONE PROP 0.05% NASAL SPRAY 16 GM (FLONASE) SCH (08:22)
[2016-07-17 18:00] VITALS: BP 141/79
[2016-07-17] MEDS: OLANZapine 10 MG TAB PO SCH (20:23)
[2016-07-18 06:00] VITALS: BP 138/88
[2016-07-18] MEDS: FLUTICASONE PROP 0.05% NASAL SPRAY 16 GM (FLONASE) SCH (09:00)
[2016-07-18] MEDS: LORATADINE 10 MG TAB PO SCH (09:00)
[2016-07-18] MEDS: CitaloPRAM (CeleXA) 10 MG TABLET PO SCH (09:08)
[2016-07-18 18:00] VITALS: BP 120/90
[2016-07-18] MEDS: OLANZapine 10 MG TAB PO SCH (20:06)
[2016-07-19 06:00] VITALS: BP 128/80
[2016-07-19] MEDS: LORATADINE 10 MG TAB PO SCH (09:18)
[2016-07-19] MEDS: CitaloPRAM (CeleXA) 10 MG TABLET PO SCH (09:19)
[2016-07-19] MEDS: FLUTICASONE PROP 0.05% NASAL SPRAY 16 GM (FLONASE) SCH (09:19)
[2016-07-19 18:00] VITALS: BP 126/74
[2016-07-19] MEDS: OLANZapine 10 MG TAB PO SCH (20:00)
[2016-07-20 06:12] VITALS: BP 140/75
[2016-07-20] MEDS: FLUTICASONE PROP 0.05% NASAL SPRAY 16 GM (FLONASE) SCH (09:00)
[2016-07-20] MEDS: CitaloPRAM (CeleXA) 10 MG TABLET PO SCH (09:05)
[2016-07-20] MEDS: LORATADINE 10 MG TAB PO SCH (09:05)
[2016-07-20 18:00] VITALS: BP 136/80
[2016-07-20] MEDS: OLANZapine 10 MG TAB PO SCH (20:07)
[2016-07-21 06:12] VITALS: BP 138/81
[2016-07-21] MEDS: FLUTICASONE PROP 0.05% NASAL SPRAY 16 GM (FLONASE) SCH (09:06)
[2016-07-21] MEDS: CitaloPRAM (CeleXA) 10 MG TABLET PO SCH (09:06)
[2016-07-21] MEDS: LORATADINE 10 MG TAB PO SCH (09:06)
[2016-07-21 18:29] VITALS: BP 135/85
[2016-07-21] MEDS: OLANZapine 10 MG TAB PO SCH (21:23)
[2016-07-22 06:33] VITALS: BP 139/82
[2016-07-22] MEDS: FLUTICASONE PROP 0.05% NASAL SPRAY 16 GM (FLONASE) SCH (08:24)
[2016-07-22] MEDS: LORATADINE 10 MG TAB PO SCH (08:24)
[2016-07-22] MEDS: CitaloPRAM (CeleXA) 10 MG TABLET PO SCH (08:25)
[2016-07-22] MEDS: ANUSOL HC CREAM 30GM TOP SCH ×2 (11:34→20:36)
[2016-07-22 18:17] VITALS: BP 135/75
[2016-07-22] MEDS: OLANZapine 10 MG TAB PO SCH (20:35)
[2016-07-23 06:55] VITALS: BP 135/90
[2016-07-23] MEDS: FLUTICASONE PROP 0.05% NASAL SPRAY 16 GM (FLONASE) SCH (08:33)
[2016-07-23] MEDS: LORATADINE 10 MG TAB PO SCH (08:33)
[2016-07-23] MEDS: CitaloPRAM (CeleXA) 10 MG TABLET PO SCH (08:33)
[2016-07-23] MEDS: ANUSOL HC CREAM 30GM TOP SCH ×2 (08:34→20:06)
[2016-07-23 18:00] VITALS: BP 146/85
[2016-07-23] MEDS: OLANZapine 10 MG TAB PO SCH (20:06)
[2016-07-24 06:49] VITALS: BP 147/87
[2016-07-24] MEDS: FLUTICASONE PROP 0.05% NASAL SPRAY 16 GM (FLONASE) SCH (08:35)
[2016-07-24] MEDS: LORATADINE 10 MG TAB PO SCH (08:36)
[2016-07-24] MEDS: ANUSOL HC CREAM 30GM TOP SCH ×2 (08:36→20:10)
[2016-07-24] MEDS: CitaloPRAM (CeleXA) 10 MG TABLET PO SCH (08:36)
[2016-07-24 18:00] VITALS: BP 134/83
[2016-07-24] MEDS: OLANZapine 10 MG TAB PO SCH (20:08)
[2016-07-25 06:43] VITALS: BP 136/82
[2016-07-25] MEDS: LORATADINE 10 MG TAB PO SCH (09:20)
[2016-07-25] MEDS: ANUSOL HC CREAM 30GM TOP SCH ×2 (09:20→20:11)
[2016-07-25] MEDS: CitaloPRAM (CeleXA) 10 MG TABLET PO SCH (09:21)
[2016-07-25] MEDS: FLUTICASONE PROP 0.05% NASAL SPRAY 16 GM (FLONASE) SCH (09:21)
[2016-07-25 18:18] VITALS: BP 132/75
[2016-07-25] MEDS: OLANZapine 10 MG TAB PO SCH (20:10)
[2016-07-25] MEDS: diphenhydrAMINE 25 MG CAP PO PRN (20:50)
[2016-07-26 06:19] VITALS: BP 130/90
[2016-07-26] MEDS: FLUTICASONE PROP 0.05% NASAL SPRAY 16 GM (FLONASE) SCH (08:10)
[2016-07-26] MEDS: diphenhydrAMINE 25 MG CAP PO PRN ×3 (08:11→20:56)
[2016-07-26] MEDS: LORATADINE 10 MG TAB PO SCH (08:11)
[2016-07-26] MEDS: CitaloPRAM (CeleXA) 10 MG TABLET PO SCH (08:11)
[2016-07-26] MEDS: ANUSOL HC CREAM 30GM TOP SCH ×2 (08:11→20:57)
[2016-07-26 18:00] VITALS: BP 129/77
[2016-07-26] MEDS: OLANZapine 10 MG TAB PO SCH (20:56)
[2016-07-27 07:15] VITALS: BP 138/88
[2016-07-27] MEDS: FLUTICASONE PROP 0.05% NASAL SPRAY 16 GM (FLONASE) SCH (10:01)
[2016-07-27] MEDS: LORATADINE 10 MG TAB PO SCH (10:01)
[2016-07-27] MEDS: CitaloPRAM (CeleXA) 10 MG TABLET PO SCH (10:01)
[2016-07-27] MEDS: ANUSOL HC CREAM 30GM TOP SCH ×2 (10:02→20:03)
[2016-07-27] MEDS: diphenhydrAMINE 25 MG CAP PO PRN ×2 (14:25→20:04)
[2016-07-27 18:00] VITALS: BP 140/78
[2016-07-27] MEDS: OLANZapine 10 MG TAB PO SCH (20:04)
[2016-07-28 06:00] VITALS: BP 147/89
[2016-07-28] MEDS: CitaloPRAM (CeleXA) 10 MG TABLET PO SCH (08:51)
[2016-07-28] MEDS: LORATADINE 10 MG TAB PO SCH (08:51)
[2016-07-28] MEDS: diphenhydrAMINE 25 MG CAP PO PRN ×3 (08:52→21:01)
[2016-07-28] MEDS: ANUSOL HC CREAM 30GM TOP SCH ×2 (08:52→21:01)
[2016-07-28] MEDS: FLUTICASONE PROP 0.05% NASAL SPRAY 16 GM (FLONASE) SCH (08:53)
[2016-07-28 18:00] VITALS: BP 129/87
[2016-07-28] MEDS: OLANZapine 10 MG TAB PO SCH (21:00)
[2016-07-29 06:28] VITALS: BP 128/75
[2016-07-29] MEDS: diphenhydrAMINE 25 MG CAP PO PRN (08:22)
[2016-07-29] MEDS: CitaloPRAM (CeleXA) 10 MG TABLET PO SCH (08:22)
[2016-07-29] MEDS: LORATADINE 10 MG TAB PO SCH (08:22)
[2016-07-29] MEDS: ANUSOL HC CREAM 30GM TOP SCH (08:23)
[2016-07-29] MEDS: FLUTICASONE PROP 0.05% NASAL SPRAY 16 GM (FLONASE) SCH (08:23)
[2016-07-29] MEDS ORDERED: AUGMENTIN 875 MG TAB PO SCH (09:00)
[2016-07-29] MEDS ORDERED: CHLORHEXIDINE GLUCONATE 0.12 % 15ML UDC (PERIDEX ORAL RINSE) SSP SCH (09:00)
[2016-07-29] MEDS ORDERED: CELE20TA PO (10:39)
[2016-07-29] MEDS ORDERED: OLAN10TA2 PO (10:39)
[2016-07-29] MEDS ORDERED: BENZ1TA PO (10:41)
[2016-07-29] MEDS ORDERED: CHLO0.129 SSP (10:50)
[2016-07-29] MEDS ORDERED: AMOX875T2 PO (10:50)
[2016-07-29] MEDS ORDERED: ZYPR15TA PO (14:22)
[2016-07-30] MEDS ORDERED: CitaloPRAM (CeleXA) 20 MG TAB PO SCH (09:00)
== END 2016-07-29 11:23 | disposition home or self-care (01) | DRG 751 ==
LOC: M ED 19:25 → M ED INP 20:43 → M PSY 22:37
PROVIDERS: ADMIT Psychiatry & Neurology Psychiatry; ATTEND Psychiatry & Neurology Psychiatry
DX: F32.3 Major depressive disorder, single episode, severe with psychotic features (principal); F25.9 Schizoaffective disorder, unspecified; D72.829 Elevated white blood cell count, unspecified; F22 Delusional disorders; F19.94 Other psychoactive substance use, unspecified with psychoactive substance-induced mood disorder; Z79.899 Other long term (current) drug therapy; Z88.8 Allergy status to other drugs, medicaments and biological substances; K04.7 Periapical abscess without sinus

== ENCOUNTER → 2023-09-30 | Outpatient (REF) | payer OTHER, MEDICAID ==
[~2023-09-30] MED LIST changes: +AMOX875T2 PO; +BENZ1TAB5 PO; +CHLO0.12 SSP; +CITA20TA6 PO; +CLAR10CA3 PO; +DIPH12.527 PO; +FLUTISP; +HYDR1CRE2 EXT; -OLAN10TA2 PO; +OLAN1TAB20 PO; +TRIA25CR TOP; +TYLE325C PO; +ZYPR15TA PO
== END ==
LOC: M SFHCPLAZ 12:30
PROVIDERS: ATTEND Family Medicine
DX: Z12.4 Encounter for screening for malignant neoplasm of cervix (principal)